=== PATIENT | female | born 1980 | race Two or more races ===

== ENCOUNTER 2017-07-08 03:26 | Emergency (ER) | payer MEDICAID ==
[~2017-07-08] VITALS: Ht 152.4 cm; Wt 79.8 kg
--- NOTE | 2017-07-08 03:40 | NUR ---
TO BED 6 A 36 YO FEMALE BIBSELF FROM HOME W C/O ABD PAIN RADIATED TO BACK SINCE NOON YESTERDAY -N/V. PATIENT IS AAOX4, NAD NOTED. VSS. BREATHING EVEN AND UNLABORED. NONDIAPHORETIC. GOWNED. COMFORT MEASURES RENDERED.
[2017-07-08 04:00] LABS: APPEARANCE,URINE SL CLOUDY (CLEAR); BILIRUBIN,URINE NEGATIVE (NEGATIVE); BLOOD, URINE 3+ Ery/uL (NEGATIVE); COLOR,URINE YELLOW (YELLOW); KETONES,URINE NEGATIVE (NEGATIVE); LEUKOCYTE ESTERASE ,URINE NEGATIVE (NEGATIVE); NITRITE, URINE NEGATIVE (NEGATIVE); PROTEIN,URINE NEGATIVE (NEGATIVE); UGLUCOSE NEGATIVE (NEGATIVE); UROBILINOGEN,URINE 0.2 EU/dL (0.2)
--- NOTE | 2017-07-08 04:00 | NUR ---
STARTED A SALINE LOCK ON THE LAC G20, BLOOD DRAWN AND SENT TO LAB.
[2017-07-08 04:03] LABS: PREGNANCY TEST URINE QUAL NEGATIVE (NEGATIVE)
[2017-07-08 04:05] LABS: BACTERIA,URINE Moderate /HPF (None Seen); SQUAMOUS EPITHELIAL CELL,UR Many /HPF (None Seen)
[2017-07-08 04:06] LABS: BASOPHILS % (AUTO) 0.4 % (0.0-2.0); EOSINOPHILS # (AUTO) 0.2 /CMM (0.0-0.7); EOSINOPHILS % (AUTO) 3.3 % (0.0-6.0); HEMATOCRIT 44 % (33-45); HEMOGLOBIN 14.6 g/dL (11.5-14.8); LYMPHOCYTES # (AUTO) 3.3 /CMM (0.8-4.8); LYMPHOCYTES % (AUTO) 46.6 % (20.0-44.0); MEAN CORPUSCULAR HEMOGLOBIN 29 PG (26.0-33.0); MEAN CORPUSCULAR HGB CONC 33 g/dl (31.0-36.0); MEAN CORPUSCULAR VOLUME 88 fL (82-100); MONOCYTES # (AUTO) 0.5 /CMM (0.1-1.30); MONOCYTES % (AUTO) 7.3 % (2.0-12.0); NEUTROPHILS % (AUTO) 42.4 % (43.0-81.0); PLATELET COUNT (AUTO) 207 /CMM (150-450); RDW COEFFICIENT OF VARIATION 13.3 (11.5-15.0); RED BLOOD CELL COUNT(AUTO) 5.01 MIL/uL (4.0-5.2)
--- NOTE | 2017-07-08 04:09 | NUR ---
MEDICATED PATIENT ORDERED BY DR JUNIOR
[2017-07-08 04:15] LABS: CALCIUM, SERUM 8.8 mg/dL (8.5-10.1); CREATININE 0.9 mg/dL (0.6-1.3); POTASSIUM 3.7 mmol/L (3.5-5.1)
[2017-07-08 04:20] LABS: ALBUMIN 3.8 g/dL (3.4-5.0); BILIRUBIN,TOTAL 0.3 mg/dL (0.2-1.0); TOTAL PROTEIN, SERUM 7.4 g/dL (6.4-8.2)
--- NOTE | 2017-07-08 05:14 | NUR ---
IV removed. Catheter intact and site benign. Pressure and 4x4 applied to site. No bleeding noted. Patient discharged to home in stable condition. Written and verbal after care instructions given. Patient verbalizes understanding of instruction. Patient is ambulatory with steady gait, Instructed not to drive. Patient is accompanied by friend. no further complaints.
[2017-07-08 05:15] VITALS: BP 138/74
== END 2017-07-08 05:16 | disposition home or self-care (01) ==
LOC: ER 03:30
DX: R10.13 Epigastric pain (principal)
CPT/HCPCS: 36415; 80048-TC; 80076-TC; 81000-TC; 83690-TC; 84703-TC; 85025-TC; 87086-TC; A4606; J1885; J2270; J2405; J7030; Z7610

== ENCOUNTER 2017-10-03 17:19 | Emergency (ER) | payer MEDICAID ==
[~2017-10-03] VITALS: Ht 162.6 cm; Wt 77.1 kg
[2017-10-03] MEDS ORDERED: MORPHINE SULFATE INJ 4 MG/ML DISP.SYRIN ONE (17:58)
[2017-10-03] MEDS ORDERED: ONDANSETRON 4 MG TAB.RAPDIS ONE (17:58)
[2017-10-03] MEDS: ONDANSETRON 4 MG TAB.RAPDIS SL ONE (18:00)
--- NOTE | 2017-10-03 18:00 | NUR ---
PAIN MEDICATION AND ANTI EMETIC GIVEN
[2017-10-03] MEDS: MORPHINE SULFATE INJ 2 MG/ML DISP.SYRIN IM ONE (18:03)
[2017-10-03 18:05] VITALS: BP 131/91
--- NOTE | 2017-10-03 18:07 | NUR ---
THE PATIENT FELT BETTER AFTER THE IM PAIN MEDICATION.
--- NOTE | 2017-10-03 18:08 | NUR ---
Patient discharged to home in stable condition. Written and verbal after care instructions given. Patient verbalizes understanding of instruction.
--- NOTE | 2017-10-03 18:08 | NUR ---
BP - 125/75; HR = 99; RR = 18; O2 = 98
--- NOTE | 2017-10-03 18:10 | NUR ---
DC WITH FAMILY -
== END 2017-10-03 18:12 | disposition home or self-care (01) ==
LOC: ER 17:22
DX: J03.90 Acute tonsillitis, unspecified (principal); J32.9 Chronic sinusitis, unspecified
CPT/HCPCS: 96372; 99283; A4606; J2270; Q0162; Z7610

== ENCOUNTER 2017-11-30 13:48 | Emergency (ER) | payer MEDICAID ==
[~2017-11-30] VITALS: Ht 165.1 cm; Wt 79.4 kg
[2017-11-30] MEDS ORDERED: ACETAMINOPHEN 325 MG TABLET PO ONE (15:00)
[2017-11-30] MEDS ORDERED: ONDANSETRON 4 MG TAB.RAPDIS SL ONE (15:00)
[2017-11-30] MEDS ORDERED: KETOROLAC TROMETHAMINE INJ 30 MG/ML VIAL IM ONE (15:00)
[2017-11-30] MEDS ORDERED: ONDANSETRON 4 MG TAB.RAPDIS ONE (15:08)
[2017-11-30] MEDS ORDERED: ACETAMINOPHEN ES 500 MG TABLET ONE (15:08)
[2017-11-30] MEDS ORDERED: KETOROLAC TROMETHAMINE INJ 30 MG/ML VIAL ONE (15:11)
[2017-11-30 15:18] LABS: APPEARANCE,URINE Clear (CLEAR); BILIRUBIN,URINE Negative (NEGATIVE); BLOOD, URINE Trace-intact Ery/uL (NEGATIVE); COLOR,URINE Yellow (YELLOW); KETONES,URINE Trace (NEGATIVE); LEUKOCYTE ESTERASE ,URINE Negative (NEGATIVE); NITRITE, URINE Negative (NEGATIVE); PH,URINE 8.5 (5.0-8.0); PROTEIN,URINE Negative (NEGATIVE); UGLUCOSE Negative (NEGATIVE); UROBILINOGEN,URINE 0.2 EU/dL (0.2)
[2017-11-30 15:30] LABS: WBC,URINE 0-3 /HPF (0-3)
[2017-11-30 15:31] LABS: BACTERIA,URINE Rare /HPF (None Seen); SQUAMOUS EPITHELIAL CELL,UR Many /HPF (None Seen)
[2017-11-30] MEDS ORDERED: IV NS 0.9% 1,000 ML BAG IV ONE (16:00)
[2017-11-30] MEDS ORDERED: MORPHINE SULFATE INJ 2 MG/ML DISP.SYRIN IV ONE (16:00)
[2017-11-30] MEDS ORDERED: MORPHINE SULFATE INJ 4 MG/ML DISP.SYRIN ONE (16:01)
[2017-11-30 16:20] LABS: BASOPHILS # (AUTO) 0.2 /CMM (0.0-0.2); BASOPHILS % (AUTO) 3.8 % (0.0-2.0); EOSINOPHILS % (AUTO) 0.1 % (0.0-6.0); HEMATOCRIT 47 % (33-45); HEMOGLOBIN 15.8 g/dL (11.5-14.8); LYMPHOCYTES # (AUTO) 0.4 /CMM (0.8-4.8); LYMPHOCYTES % (AUTO) 6.9 % (20.0-44.0); MEAN CORPUSCULAR HEMOGLOBIN 29 PG (26.0-33.0); MEAN CORPUSCULAR HGB CONC 33 g/dl (31.0-36.0); MEAN CORPUSCULAR VOLUME 86 fL (82-100); MONOCYTES # (AUTO) 0.3 /CMM (0.1-1.30); MONOCYTES % (AUTO) 6.3 % (2.0-12.0); NEUTROPHILS # (AUTO) 4.6 /CMM (1.8-8.9); NEUTROPHILS % (AUTO) 82.9 % (43.0-81.0); PLATELET COUNT (AUTO) 188 /CMM (150-450); RDW COEFFICIENT OF VARIATION 12.7 (11.5-15.0); RED BLOOD CELL COUNT(AUTO) 5.49 MIL/uL (4.0-5.2); WHITE BLOOD COUNT (AUTO) 5.5 K/uL (4.3-11.0)
[2017-11-30 16:27] LABS: CALCIUM, SERUM 9.5 mg/dL (8.5-10.1); CREATININE 0.7 mg/dL (0.6-1.3); POTASSIUM 3.5 mmol/L (3.5-5.1)
[2017-11-30 16:33] LABS: ALBUMIN 4.2 g/dL (3.4-5.0); BILIRUBIN,DIRECT 0.1 mg/dL (0.0-0.2); BILIRUBIN,TOTAL 0.3 mg/dL (0.2-1.0); TOTAL PROTEIN, SERUM 8.4 g/dL (6.4-8.2)
[2017-11-30 18:10] VITALS: BP 124/80
--- NOTE | 2017-11-30 18:11 | NUR ---
Patient discharged to home in stable condition. Written and verbal after care instructions given. Patient verbalizes understanding of instruction.
== END 2017-11-30 18:11 | disposition home or self-care (01) ==
LOC: ER 13:51
DX: R51 Headache (principal); R11.2 Nausea with vomiting, unspecified; E86.0 Dehydration; B34.9 Viral infection, unspecified
CPT/HCPCS: 36415; 71045-TC; 80048-TC; 80076-TC; 81000-TC; 83690-TC; 84703-TC; 85025-TC; 85378-TC; 87400; A4606; J1885; J2270; J7030; Q0162; Z7610

== ENCOUNTER 2018-10-03 14:59 | Emergency (ER) | payer MEDICAID ==
[~2018-10-03] VITALS: Ht 152.4 cm; Wt 72.6 kg
[2018-10-03 15:00] VITALS: BP 107/68
[2018-10-03] MEDS ORDERED: ACETAMINOPHEN ES 500 MG TABLET ONE (15:59)
[2018-10-03] MEDS ORDERED: ACETAMINOPHEN 325 MG TABLET PO ONE (16:00)
== END 2018-10-03 17:34 | disposition home or self-care (01) ==
LOC: ER 15:00
DX: M25.521 Pain in right elbow (principal); W18.39XA Other fall on same level, initial encounter; Y93.89 Activity, other specified; Y92.89 Other specified places as the place of occurrence of the external cause; Y99.8 Other external cause status
CPT/HCPCS: 73080; 99283; A4606; Z7610

== ENCOUNTER 2019-03-21 21:52 | Emergency (ER) | payer MEDICAID ==
[~2019-03-21] VITALS: Ht 162.6 cm; Wt 74.4 kg
--- NOTE | 2019-03-21 22:10 | NUR ---
PT PRESENTED TO THE ER WITH A C/O HEADACHE ON THE RT SIDE OF HER HEAD. THE PAIN IS GOING THROUGH HER RT EYE AND IS 8/10. 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 PT AMBULATED TO ER BED #1 WITH A SLOW STEADY GAIT. PT IS ON THE MONITOR AND CONTINUOUS PULSE OX.
--- NOTE | 2019-03-21 22:15 | NUR ---
URINE COLLECTED AND SENT TO LAB
--- NOTE | 2019-03-21 22:46 | NUR ---
DR BLACK IS AT THE BEDSIDE.
[2019-03-21] MEDS ORDERED: KETOROLAC TROMETHAMINE INJ 30 MG/ML VIAL ONE (22:57)
[2019-03-21] MEDS ORDERED: METOCLOPRAMIDE HCL 10 MG/2 ML VIAL ONE (22:57)
[2019-03-21] MEDS ORDERED: diphenhydrAMINE HCL 50 MG/ML VIAL ONE (22:57)
[2019-03-21] MEDS ORDERED: diphenhydrAMINE HCL 50 MG/ML VIAL IV ONE (23:00)
[2019-03-21] MEDS ORDERED: KETOROLAC TROMETHAMINE 15 MG/ML VIAL ONE (23:00)
[2019-03-21] MEDS ORDERED: IV NS 0.9% 1,000 ML BAG IV ONE (23:00)
[2019-03-21] MEDS ORDERED: KETOROLAC TROMETHAMINE INJ 30 MG/ML VIAL IV ONE (23:00)
[2019-03-21] MEDS ORDERED: METOCLOPRAMIDE HCL 10 MG/2 ML VIAL IV ONE (23:00)
--- NOTE | 2019-03-21 23:10 | NUR ---
PT REC'D MEDICATION ORDERED.
--- NOTE | 2019-03-21 23:45 | NUR ---
PT APPEARS TO BE RESTING COMFORTABLY WITH NO S/S OF PAIN OR DISTRESS. PT STATED THAT HER PAIN HAS IMPROVED SLIGHTLY. WILL CONTINUE TO MONITOR THE PT.
--- NOTE | 2019-03-22 00:52 | NUR ---
IV removed. Catheter intact and site benign. Pressure and 4x4 applied to site. No bleeding noted. Patient discharged to home in stable condition. Written and verbal after care instructions given. Patient verbalizes understanding of instruction. PT AMBULATED OUT WITH A STEADY GAIT. VSS.
[2019-03-22 00:53] VITALS: BP 101/56
== END 2019-03-22 00:54 | disposition home or self-care (01) ==
LOC: ER 21:53
DX: R51 Headache (principal); R11.2 Nausea with vomiting, unspecified
CPT/HCPCS: 84703; 96361; 96374; 96375; 99283; J1200; J1885; J2765; J7030

== ENCOUNTER 2019-06-18 18:46 | Emergency (ER) | payer MEDICAID ==
[~2019-06-18] VITALS: Ht 152.4 cm; Wt 77.1 kg
[2019-06-18] MEDS ORDERED: MORPHINE SULFATE INJ 4 MG/ML DISP.SYRIN ONE (19:24)
[2019-06-18] MEDS ORDERED: ONDANSETRON HCL/PF 4 MG/2 ML VIAL ONE (19:24)
--- NOTE | 2019-06-18 19:25 | NUR ---
BIBF FOR C/O ABD PAIN RADIATING TO HER BACK X 1 DAY. -N/V, LBM: TODAY. - DIARRHEA, - CONSTIPATION. LMP: 05/25/19.
[2019-06-18] MEDS ORDERED: MORPHINE SULFATE INJ 2 MG/ML DISP.SYRIN IV ONE (19:30)
[2019-06-18] MEDS ORDERED: IV NS 0.9% 1,000 ML BAG IV ONE (19:30)
[2019-06-18] MEDS ORDERED: ONDANSETRON HCL/PF 4 MG/2 ML VIAL IVP ONE (19:30)
[2019-06-18 19:34] LABS: BASOPHILS % (AUTO) 0.5 % (0.0-2.0); EOSINOPHILS % (AUTO) 1.7 % (0.0-6.0); HEMATOCRIT 43 % (33-45); HEMOGLOBIN 14.6 g/dL (11.5-14.8); LYMPHOCYTES # (AUTO) 1.9 /CMM (0.8-4.8); LYMPHOCYTES % (AUTO) 24.1 % (20.0-44.0); MEAN CORPUSCULAR HGB CONC 34 g/dl (31.0-36.0); MEAN CORPUSCULAR VOLUME 91 fL (82-100); MONOCYTES # (AUTO) 0.4 /CMM (0.1-1.30); MONOCYTES % (AUTO) 5.5 % (2.0-12.0); NEUTROPHILS # (AUTO) 5.4 /CMM (1.8-8.9); NEUTROPHILS % (AUTO) 68.2 % (43.0-81.0); PLATELET COUNT (AUTO) 217 /CMM (150-450); RED BLOOD CELL COUNT(AUTO) 4.76 MIL/uL (4.0-5.2); WHITE BLOOD COUNT (AUTO) 7.9 K/uL (4.3-11.0)
[2019-06-18 19:44] LABS: APPEARANCE,URINE Clear (CLEAR); BILIRUBIN,URINE Negative (NEGATIVE); BLOOD, URINE Small Ery/uL (NEGATIVE); COLOR,URINE Yellow (YELLOW); KETONES,URINE Negative (NEGATIVE); LEUKOCYTE ESTERASE ,URINE Negative (NEGATIVE); NITRITE, URINE Negative (NEGATIVE); PROTEIN,URINE Negative (NEGATIVE); UGLUCOSE Negative (NEGATIVE); UROBILINOGEN,URINE 0.2 EU/dL (0.2)
[2019-06-18 19:44] LABS: CALCIUM, SERUM 9.4 mg/dL (8.5-10.1); CREATININE 0.9 mg/dL (0.6-1.3); POTASSIUM 3.9 mmol/L (3.5-5.1)
[2019-06-18 19:50] LABS: ALBUMIN 4.1 g/dL (3.4-5.0); BILIRUBIN,DIRECT 0.1 mg/dL (0.0-0.2); BILIRUBIN,TOTAL 0.3 mg/dL (0.2-1.0); TOTAL PROTEIN, SERUM 7.7 g/dL (6.4-8.2)
[2019-06-18 19:54] LABS: BACTERIA,URINE Few /HPF (None Seen); SQUAMOUS EPITHELIAL CELL,UR Few /HPF (None Seen); WBC,URINE 0-2 /HPF (0-3)
--- NOTE | 2019-06-18 20:44 | NUR ---
IV removed. Catheter intact and site benign. Pressure and 4x4 applied to site. No bleeding noted.Patient discharged to home in stable condition. Written and verbal after care instructions given. Patient verbalizes understanding of instruction. family will provide ride
--- NOTE | 2019-06-18 20:45 | NUR ---
pt was provided w/ prescriptions
[2019-06-18 20:55] VITALS: BP 119/82
== END 2019-06-18 20:35 | disposition home or self-care (01) ==
LOC: ER 18:46
DX: R10.13 Epigastric pain (principal); R11.10 Vomiting, unspecified
CPT/HCPCS: 36415; 80048; 80076; 81001; 83690; 84703; 85025; 87086; 96361; 96374; 96375; 99283; J2270; J2405; J7030; 81000-TC

== ENCOUNTER 2022-03-09 17:34 | Emergency (ER) | payer MEDICAID ==
[~2022-03-09] VITALS: Ht 152.4 cm; Wt 83.7 kg
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
[2022-03-09] MEDS ORDERED: KETOROLAC TROMETHAMINE INJ 60 MG/2 ML VIAL IM ONE (18:30)
[2022-03-09] MEDS ORDERED: CYCLOBENZAPRINE 10 MG TABLET PO ONE (18:30)
[2022-03-09] MEDS ORDERED: CYCLOBENZAPRINE 10 MG TABLET ONE (18:32)
--- NOTE | 2022-03-09 18:58 | NUR ---
X-RAY TECH. AT BED SIDE
--- NOTE | 2022-03-09 19:05 | NUR ---
rec'd report from melanie Fu for michael
--- NOTE | 2022-03-09 19:33 | NUR ---
called lab to f/u on result, per lab, 10 min
[2022-03-09] MEDS ORDERED: IBUP-1955 PO (19:50)
[2022-03-09] MEDS ORDERED: CYCL5TAB PO (19:50)
[2022-03-09] MEDS ORDERED: KETOROLAC TROMETHAMINE INJ 30 MG/ML VIAL ONE (19:55)
--- NOTE | 2022-03-09 19:59 | NUR ---
Patient discharged to home in stable condition. Written and verbal after care instructions given. Patient verbalizes understanding of instruction. pt ambulatory with a steady gait
[2022-03-09 20:05] VITALS: BP 117/71
== END 2022-03-09 19:59 | disposition home or self-care (01) ==
LOC: ER 17:42
DX: S16.1XXA Strain of muscle, fascia and tendon at neck level, initial encounter (principal); S53.402A Unspecified sprain of left elbow, initial encounter; Z79.899 Other long term (current) drug therapy; V89.2XXA Person injured in unspecified motor-vehicle accident, traffic, initial encounter; Y93.89 Activity, other specified; Y92.89 Other specified places as the place of occurrence of the external cause; Y99.8 Other external cause status
CPT/HCPCS: 72050; 73030; 73080; 84703; 96372; 99284; J1885

== ENCOUNTER 2022-07-14 18:12 | Emergency (ER) | payer MEDICAID ==
[~2022-07-14] VITALS: Ht 152.4 cm; Wt 81.6 kg
[~2022-07-14 18:12] MED LIST: CYCL5TAB PO; IBUP-1955 PO
[2022-07-14 18:24] VITALS: BP 111/81
[2022-07-14] MEDS ORDERED: AMOX-430 PO (20:27)
[2022-07-14] MEDS ORDERED: LIDOCAINE 2% 20 ML MDV ONE (20:29)
[2022-07-14] MEDS ORDERED: DEXAMETHASONE 4 MG TABLET ONE (20:29)
[2022-07-14] MEDS ORDERED: CEFTRIAXONE 1 G VIAL ONE (20:29)
[2022-07-14] MEDS ORDERED: DEXAMETHASONE 1 MG TABLET PO ONE (20:30)
[2022-07-14] MEDS ORDERED: CEFTRIAXONE 1 G VIAL IM ONE (20:30)
--- NOTE | 2022-07-14 20:39 | NUR ---
Patient discharged to home in stable condition. Written and verbal after care instructions given. Patient verbalizes understanding of instruction.
== END 2022-07-14 20:42 | disposition home or self-care (01) ==
LOC: ER 18:15
DX: J03.90 Acute tonsillitis, unspecified (principal); Z79.899 Other long term (current) drug therapy
CPT/HCPCS: 99283; 96372; J8540; J0696; J3490

== ENCOUNTER 2024-10-01 14:05 | Emergency (ER) | payer MEDICAID, OTHER ==
[~2024-10-01] VITALS: Ht 152.4 cm; Wt 78.5 kg
[~2024-10-01 14:05] MED LIST changes: +AMOX-430 PO
[2024-10-01 14:38] VITALS: TEMP 99.2
[2024-10-01] MEDS ORDERED: METOCLOPRAMIDE HCL 10 MG/2 ML VIAL ONE (15:15)
[2024-10-01] MEDS ORDERED: ACETAMINOPHEN ES 500 MG TABLET ONE (15:15)
[2024-10-01] MEDS ORDERED: diphenhydrAMINE HCL 50 MG/ML VIAL ONE (15:15)
[2024-10-01] MEDS: diphenhydrAMINE HCL 50 MG/ML VIAL IV ONE (15:25)
[2024-10-01] MEDS: METOCLOPRAMIDE HCL 10 MG/2 ML VIAL IV ONE (15:28)
[2024-10-01] MEDS: IV NS 0.9% 1,000 ML BAG IV ONE (15:30)
[2024-10-01] MEDS: ACETAMINOPHEN ES 500 MG TABLET PO ONE (15:33)
[2024-10-01 16:04] LABS: BASOPHILS % (AUTO) 0.5 % (0.0-2.0); EOSINOPHILS % (AUTO) 0.5 % (0.0-6.0); HEMATOCRIT 43 % (33-45); HEMOGLOBIN 14.2 g/dL (11.5-14.8); LYMPHOCYTES # (AUTO) 0.7 K/uL (0.8-4.8); LYMPHOCYTES % (AUTO) 16.9 % (20.0-44.0); MEAN CORPUSCULAR HEMOGLOBIN 29 PG (26.0-33.0); MEAN CORPUSCULAR HGB CONC 33 g/dl (31.0-36.0); MEAN CORPUSCULAR VOLUME 88 fL (82-100); MONOCYTES # (AUTO) 0.6 K/uL (0.1-1.30); MONOCYTES % (AUTO) 12.8 % (2.0-12.0); NEUTROPHILS # (AUTO) 3.1 K/uL (1.8-8.9); NEUTROPHILS % (AUTO) 69.3 % (43.0-81.0); PLATELET COUNT (AUTO) 181 K/uL (150-450); RED BLOOD CELL COUNT(AUTO) 4.84 MIL/uL (4.0-5.2); RED CELL DISTRIBUTION WIDTH 13.6 % (11.5-15.0); WHITE BLOOD COUNT (AUTO) 4.4 K/uL (4.3-11.0)
[2024-10-01 16:44] LABS: CALCIUM, SERUM 9.2 mg/dL (8.5-10.1); CREATININE 0.7 mg/dL (0.6-1.3); POTASSIUM 3.7 mmol/L (3.5-5.1)
[2024-10-01 16:58] LABS: ALBUMIN 3.8 g/dL (3.4-5.0); BILIRUBIN,TOTAL 0.2 mg/dL (0.2-1.0); TOTAL PROTEIN, SERUM 7.6 g/dL (6.4-8.2)
[2024-10-01] MEDS ORDERED: KETOROLAC TROMETHAMINE 15 MG/ML VIAL ONE (17:46)
[2024-10-01] MEDS: KETOROLAC TROMETHAMINE 15 MG/ML VIAL IV ONE (17:48)
[2024-10-01 17:55] VITALS: BP 115/75; O2SAT 99
== END 2024-10-01 17:55 | disposition home or self-care (01) ==
LOC: ER 14:05
DX: R51.9 Headache, unspecified (principal); R11.2 Nausea with vomiting, unspecified; R05.8 Other specified cough; M79.10 Myalgia, unspecified site; R10.2 Pelvic and perineal pain; Z20.822 Contact with and (suspected) exposure to COVID-19
CPT/HCPCS: 99284; 96374; 96375; 96361; 87426; 87804 ×2; 85025; 80048; 83690; 80076; 36415; 84702; J1200; J2765; J1885

== ENCOUNTER 2025-09-11 21:12 | Emergency (ER) | payer OTHER ==
[~2025-09-11] VITALS: Ht 160 cm; Wt 80.7 kg
[2025-09-11] MEDS ORDERED: MECL-159 PO (22:32)
[2025-09-11] MEDS ORDERED: ACET-73 PO (22:32)
[2025-09-11] MEDS ORDERED: MECLIZINE HCL 25 MG TABLET ONE (22:35)
[2025-09-11] MEDS: MECLIZINE HCL 12.5 MG TABLET PO ONE (22:42)
[2025-09-11 22:45] VITALS: BP 113/60; TEMP 98; O2SAT 99
== END 2025-09-11 22:47 | disposition home or self-care (01) ==
LOC: ER 21:15
DX: G43.909 Migraine, unspecified, not intractable, without status migrainosus (principal); R42 Dizziness and giddiness
CPT/HCPCS: 99283; J8597